=== PATIENT | female | born 1965 | race Caucasian/White ===

== ENCOUNTER 2020-10-04 09:47 | Outpatient (CLI) | payer BC, OTHER, SELFPAY ==
--- NOTE | ~2020-10-04 | DEXA_ITS ---
Bone Density Report Name: Natasha Sanchez Age: 54 Sex: Female Ethnicity: White Date of : 1965 Indication: osteopenia; height loss; hysterectomy; Referring Provider: Raul, Vidya Rios Study: Bone densitometry was performed. Exam Date: October 04, 2020 Accession number: [id number] Bone Density: Region BMD T-score Z-score Classification AP Spine (L1-L4) 0.935 -1.0 0.1 Normal Femoral Neck (Left) 0.551 -2.7 -1.6 Osteoporosis Total Hip (Left) 0.674 -2.2 -1.5 Osteopenia Total Hip Bilateral Avg 0.682 -2.1 -1.5 Osteopenia Femoral Neck (Right) 0.566 -2.5 -1.5 Osteoporosis Total Hip (Right) 0.688 -2.1 -1.4 Osteopenia World Health Organization criteria for BMD impression classify patients as: Normal (T-score at or above -1.0), Osteopenia (T-score between -1.0 and -2.5), or Osteoporosis (T-score at or below -2.5). 10-year Fracture Risk: FRAX not reported because: Some T-score for Spine Total or Hip Total or Femoral Neck at or below -2.5 Previous Exams: Region Exam Age BMD T-score BMD Change BMD Change Date g/cm2 vs Baseline vs Previous AP Spine(L1-L4) 10/04/2020 54 0.935 -1.0 -0.249(-21.0%) -0.050(-5.1%)* 12/16/2016 51 0.985 -0.6 -0.199(-16.8%) -0.137(-12.2%) 05/08/2014 48 1.122 0.7 -0.062(-5.2%)# 0.030(2.7%)# 04/25/2012 46 1.092 0.4 -0.092(-7.8%)# -0.092(-7.8%)# 02/03/2007 41 1.184 1.2 Total Hip(Left) 10/04/2020 54 0.674 -2.2 -0.114(-14.5%) -0.091(-11.8%) 12/16/2016 51 0.765 -1.5 -0.023(-3.0%)# -0.023(-2.9%) 05/08/2014 48 0.787 -1.3 -0.001(-0.1%)# 0.013(1.7%)# 04/25/2012 46 0.774 -1.4 -0.014(-1.7%)# -0.014(-1.7%)# 02/03/2007 41 0.788 -1.3 Total Hip(Right) 10/04/2020 54 0.688 -2.1 -0.080(-10.4%) -0.065(-8.6%)* 12/16/2016 51 0.752 -1.6 -0.015(-1.9%)# -0.044(-5.5%)* 05/08/2014 48 0.797 -1.2 0.030(3.8%)# 0.016(2.0%)# 04/25/2012 46 0.781 -1.3 0.014(1.8%)# 0.014(1.8%)# 02/03/2007 41 0.767 -1.4 *Denotes significance at 95% confidence level, LSC for AP Spine = 0.022 g/cm2, LSC for Total Hip = 0.027 g/cm2 Clinical Information Provided by Patient: Has used the following medications: Vitamin D, Calcium Has the following medical conditions: Hysterectomy Patient maximum height was 67.5 Menopause Age: 31 Does not regularly consume dairy products Drinks caffeinated beverages Onset of menses at age 13 Number of children 1 Impression: The patient has osteoporosis
--- NOTE | ~2020-10-04 | MM_ITS ---
EXAMINATION: MM screening [facility] BI w jose miguel HISTORY: Screening mammogram TECHNIQUE: Craniocaudal and mediolateral oblique 3-D tomosynthesis images were obtained and synthetic 2-D images were generated. CAD analysis was submitted and interpreted. COMPARISON: 12/16/2016, 05/14/2015, 05/08/2014 BREAST PARENCHYMAL COMPOSITION: The breasts are heterogeneously dense, which may obscure small masses . FINDINGS: There is no evidence of suspicious mass, calcification, or architectural distortion to sugg est malignancy in either breast. There has been no suspicious interval change. IMPRESSION: 1. No mammographic evidence of malignancy. 2. Recommend routine screening mammography in one year. BI-RADS Category 1: Negative Reviewed, dictated and finalized at location A.
== END 2020-10-04 09:48 | disposition home or self-care (01) ==
LOC: ANHIMG 09:55
PROVIDERS: Visit Provider Obstetrics & Gynecology
DX: Z12.31 Encounter for screening mammogram for malignant neoplasm of breast (principal); M81.0 Age-related osteoporosis without current pathological fracture; M85.852 Other specified disorders of bone density and structure, left thigh; M85.851 Other specified disorders of bone density and structure, right thigh
CPT/HCPCS: 77063; 77067; 77080

== ENCOUNTER 2024-05-08 14:43 | Outpatient (CLI) | payer OTHER, SELFPAY ==
--- NOTE | ~2024-05-08 | MM_ITS ---
EXAMINATION: MM screening [facility] w jose miguel HISTORY: Screening mammogram TECHNIQUE: Craniocaudal and mediolateral oblique 3-D tomosynthesis images were obtained and synthetic 2-D images were generated. CAD analysis was submitted and interpreted. COMPARISON: 10/04/2020 BREAST PARENCHYMAL COMPOSITION:Dense: The breasts are extremely dense, which lowers the sensitivity o f mammography. FINDINGS: No suspicious mass, calcification, or architectural distortion are identified in either myrtle ast to suggest malignancy. There has been no suspicious interval change. IMPRESSION: No mammographic evidence of malignancy. Recommend routine screening mammography in one year. BI-RADS Category 1: Negative Reviewed, dictated and finalized at location .
== END 2024-05-08 14:44 | disposition home or self-care (01) ==
LOC: ANHIMG 14:46
PROVIDERS: PCP Family Medicine; Visit Provider Obstetrics & Gynecology
DX: Z12.31 Encounter for screening mammogram for malignant neoplasm of breast (principal)
CPT/HCPCS: 77063; 77067